=== PATIENT | female | born 1955 ===

== ENCOUNTER → 2025-03-13 | Outpatient (REF) | payer OTHER ==
[2025-03-13 18:11] LABS: BASO # 0.0 10^3/uL (0.0-0.2); BASO % 0.3 % (0.0-1.0); EOS # 0.1 10^3/uL (0.0-0.5); EOS % 0.9 % (0.0-3.0); LYMPH # 1.7 10^3/uL (1.5-5.0); LYMPH % 17.2 % (24.0-44.0); MONO # 0.8 10^3/uL (0.0-0.8); MONO % 7.7 % (2.0-8.0); NEUTROPHILS # 7.2 10^3/uL (1.5-8.5); NEUTROPHILS % 73.0 % (36.0-66.0); PLATELET COUNT, AUTOMATED 415 10^3/uL (150-450)
[2025-03-13 18:41] LABS: ALT/SGPT 43.0 U/L (7.0-40); AST/SGOT 40.0 U/L (<34); CALCIUM LEVEL 8.5 MG/DL (8.3-10.6); CARBON DIOXIDE LEVEL 26.0 MMOL/L (20-31); CHLORIDE LEVEL 99.0 MMOL/L (98-107); CPK CREATINE PHOSPHOKINASE 596.0 U/L (34-145); CREATININE FOR GFR 0.79 MG/DL (0.55-1.30); GLOMERULAR FILTRATION RATE 80.4 (>39); POTASSIUM SERUM 4.6 MMOL/L (3.5-5.1); SODIUM LEVEL 135.0 MMOL/L (136-145)
== END ==
LOC: M LAB REF 17:16
PROVIDERS: ATTEND Internal Medicine Infectious Disease
DX: K68.12 Psoas muscle abscess (principal); R78.81 Bacteremia; B95.62 Methicillin resistant Staphylococcus aureus infection as the cause of diseases classified elsewhere

== ENCOUNTER → 2025-03-31 | Outpatient (REF) | payer OTHER ==
[2025-03-31 16:08] LABS: BASO # 0.0 10^3/uL (0.0-0.2); BASO % 0.3 % (0.0-1.0); EOS # 0.2 10^3/uL (0.0-0.5); EOS % 1.8 % (0.0-3.0); LYMPH # 2.0 10^3/uL (1.5-5.0); LYMPH % 22.4 % (24.0-44.0); MONO # 0.8 10^3/uL (0.0-0.8); MONO % 8.8 % (2.0-8.0); NEUTROPHILS # 6.0 10^3/uL (1.5-8.5); NEUTROPHILS % 66.3 % (36.0-66.0); PLATELET COUNT, AUTOMATED 420 10^3/uL (150-450)
[2025-03-31 16:21] LABS: ALT/SGPT 18.0 U/L (7.0-40); AST/SGOT 16.0 U/L (<34); CALCIUM LEVEL 8.6 MG/DL (8.3-10.6); CARBON DIOXIDE LEVEL 26.0 MMOL/L (20-31); CHLORIDE LEVEL 98.0 MMOL/L (98-107); CPK CREATINE PHOSPHOKINASE 160.0 U/L (34-145); CREATININE FOR GFR 0.94 MG/DL (0.55-1.30); GLOMERULAR FILTRATION RATE 65.3 (>39); POTASSIUM SERUM 4.0 MMOL/L (3.5-5.1); SODIUM LEVEL 132.0 MMOL/L (136-145)
== END ==
LOC: M LAB REF 15:17
PROVIDERS: ATTEND Internal Medicine Infectious Disease
DX: K68.12 Psoas muscle abscess (principal); B95.62 Methicillin resistant Staphylococcus aureus infection as the cause of diseases classified elsewhere; R78.81 Bacteremia

== ENCOUNTER → 2025-04-07 | Outpatient (REF) | payer OTHER ==
[2025-04-07 18:25] LABS: BASO # 0.1 10^3/uL (0.0-0.2); BASO % 0.5 % (0.0-1.0); EOS # 0.2 10^3/uL (0.0-0.5); EOS % 1.9 % (0.0-3.0); LYMPH # 2.4 10^3/uL (1.5-5.0); LYMPH % 23.4 % (24.0-44.0); MONO # 1.0 10^3/uL (0.0-0.8); MONO % 9.3 % (2.0-8.0); NEUTROPHILS # 6.6 10^3/uL (1.5-8.5); NEUTROPHILS % 64.5 % (36.0-66.0); PLATELET COUNT, AUTOMATED 476 10^3/uL (150-450)
[2025-04-07 18:40] LABS: CPK CREATINE PHOSPHOKINASE 154.0 U/L (34-145)
[2025-04-07 18:41] LABS: ALT/SGPT 12.0 U/L (7.0-40); AST/SGOT 17.0 U/L (<34); CALCIUM LEVEL 9.1 MG/DL (8.3-10.6); CARBON DIOXIDE LEVEL 25.0 MMOL/L (20-31); CHLORIDE LEVEL 101.0 MMOL/L (98-107); CREATININE FOR GFR 0.89 MG/DL (0.55-1.30); GLOMERULAR FILTRATION RATE 69.7 (>39); POTASSIUM SERUM 4.5 MMOL/L (3.5-5.1); SODIUM LEVEL 137.0 MMOL/L (136-145)
== END ==
LOC: M LAB REF 16:24
PROVIDERS: ATTEND Internal Medicine Infectious Disease
DX: K68.12 Psoas muscle abscess (principal); R78.81 Bacteremia; B95.62 Methicillin resistant Staphylococcus aureus infection as the cause of diseases classified elsewhere